=== PATIENT | male | born 1995 | race Hispanic/Latino ===

== ENCOUNTER 2016-07-21 22:18 | Emergency (ER) | payer SELFPAY ==
[~2016-07-21] VITALS: Ht 175.3 cm; Wt 75.0 kg
[2016-07-21 22:29] VITALS: BP 135/83; PULSE 113; RESP 15; O2SAT 100
--- NOTE | 2016-07-21 22:40 | ED.REPORT ---
HPI-Overdose/Alcohol Toxicity Date of Service Jul 21, 2016 ED Provider: Tony Mcdowell MD Patient is a 21 year old male who reports to the ED via EMS for aggressive behavior due to intoxication. Pt was tied up by relatives for transport and ketamine was given en route. He is sleeping upon arrival and requires a psych evaluation and a sitter. Patient awakens intermittently and is beligerant with staff and expresses suicidal intentions. Upon waking, patient does not recall what happened during the night other then that he was drinking in [place]. He knows he is at [facility]. Nursing Notes Stated Complaint: ETOH Chief Complaint: Substance Abuse Nursing Notes Reviewed: Yes Allergies: Coded Allergies: No Known Allergies (Unverified Allergy, Unknown, 01/09/14) No Active Prescriptions or Reported Meds General Time Seen by Provider: 22:38 Chief Complaint Intoxicated, alcohol Initial Psychiatric Assessment: Expresses suicidal intent Hx Obtained From: Patient Arrived By: Ambulance Onset Occurred: 5 - 8 hours ago Symptom Duration: Since onset Severity: Current: No pain currently Recent Healthcare: No recent doctor visit, No recent hospitalization Similar Sx Previous: No Past Medical History Past Medical History denies Past Surgical History denies Smoking History Unknown if Ever Smoker Social History Alcohol Use: 3-5 per day Drug Use: THC Ambulatory Status Independent Review of Systems Unable to Obtain ROS Intoxicated Physical Exam Initial Vital Signs Vital Signs (First) Date Time Temp Pulse Resp B/P Pulse Ox O2 Delivery O2 Flow Rate FiO2 07/21/16 22:29 37.2 113 15 135/83 100 Nasal Cannula 4 Initial VS: Reviewed, Vital signs abnormal Head / Eyes: Atraumatic, Normocephalic, PERRL ENT: Mucous membranes moist, Conjunctiva normal, No scleral icterus Neck: Supple, Non-tender, Full range of motion Extremities: Vascular intact, Neuro intact, No swelling, No tenderness Skin: Warm, Dry, No cyanosis Alertness: Positive: Sedated Appearance / Presentation: Positive: Intoxicated smells of EtOH Respiratory / Chest: Atraumatic, Breath sounds NL, Breath sounds = bilat, No respiratory distress, No rales, No rhonchi, No wheezing Cardiovascular: Heart rate NL, Regular rhythm, Heart sounds NL, No gallop, No murmurs, No rubs Abdomen: Atraumatic, Soft, Non-tender, No guarding, No rebound, BS normoactive Mental Status: Positive: Unresponsive sedated Unable to Evaluate: Positive: Unresponsive Interpretation & Diagnostics Lab Results Interpretation Result Diagram: 07/21/16 22507/21/16 225 Test 07/21/16 22:51 07/22/16 02:40 White Blood Count 10.2th/mm3 (3.8-10.1) Red Blood Count 5.40mil/mm3 (4.40-5.80) Hemoglobin 16.7g/dL (13.8-17.2) Hematocrit 48.8% (41.0-50.0) Mean Corpuscular Volume 90.4fL (81-100) Mean Corpuscular Hemoglobin 30.9pg (27.0-35.0) Mean Corpuscular Hemoglobin Concent 34.2% (32.0-37.0) Red Cell Distribution Width 12.9% (12.3-15.4) Platelet Count 377bil/L (150-400) Neutrophils (%) (Auto) 53.7% (40-74) Lymphocytes (%) (Auto) 35.3% (14-46) Monocytes (%) (Auto) 9.3% (4-12) Eosinophils (%) (Auto) 0.7% (0-5) Basophils (%) (Auto) 0.3% (0-3) Hold Purple Top Tube Received (Received) Hold Blue Top Tube Received (Received) Sodium Level 146mEq/L (134-144) Potassium Level 3.4mEq/L (3.5-5.2) Chloride Level 101mEq/L (97-108) Carbon Dioxide Level 15mmol/L (18-29) Blood Urea Nitrogen 10mg/dL (6-20) Creatinine 1.36mg/dL (0.76-1.27) Estimat Glomerular Filtration Rate 70mL/min (>59) Glucose Level 163mg/dL (60-99) Calcium Level 9.5mg/dL (8.5-10.1) Total Bilirubin 0.3mg/dL (0.0-1.2) Aspartate Amino Transf (AST/SGOT) 37U/L (0-50) Alanine Aminotransferase (ALT/SGPT) 28U/L (0-44) Alkaline Phosphatase 79U/L (25-150) Total Creatine Kinase 211U/L (21-232) Total Protein 8.7g/dL (6.4-8.4) Albumin 5.5g/dL (3.4-5.0) Lipase 34U/L (13-60) Hold Red Top Tube Received (Received) Hold [place] Top Tube Received (Received) Alcohol, Quantitative 268mg/dL (0-10) Hold Urine Received (Received) Lab values outside NL range: no clinical significance. Re-Eval/Medical Decision Med Decision/Clinical Course 21-year-old who was very intoxicated and required restraint and ketamine sedation en route. He sobered through the night, and now does not remember much of the events. He is remorseful. He denies with specific questioning suicidal or homicidal ideation. He will be discharged home. A brief intervention was done. Re-Evaluation/Progress : Time of Eval: 05:27 Patient Status: Condition improved Re-Evaluation/Progress Note: Pt rechecked. Pt was sleeping, but wakes up and responds to questions. He is sobered and continues to improve. He now denies suicidal ideation. Counseled Regarding: Diagnosis, Lab results, Need for follow-up, When/why to return to ED Discharge & Departure Impression: Primary Impression: Alcohol abuse )( Condition at Discharge: No danger to self, No danger to others, No suicidal ideation, No homicidal ideation Disposition: Home Discharge Condition All VS Reviewed: Yes Condition: Stable Patient Instructions: Alcohol Intoxication (ED) Additional Instructions: Alcohol and marijuana are not your friends. Get back on track, and do not drink. Return to the emergency room as needed. Referrals: NOPCP (PCP) Scribe Attestation Portions of this note were transcribed by Justyn Brisoce. I, Dr. Mcdowell personally performed the history, physical exam and medical decision-making; I reviewed and confirmed the accuracy of the information in the transcribed note. Signed by: Sabine Ott, 07/22/16 0601 Tony Mcdowell MD Jul 21, 2016 22:40 JUSTYN BRISCOE Jul 22, 2016 05:07
[2016-07-21 23:35] LABS: BASOPHILS % (AUTO) 0.3 % (0-3); EOSINOPHILS % (AUTO) 0.7 % (0-5); MONOCYTES % (AUTO) 9.3 % (4-12); Mean Corpuscular Hemoglobin 30.9 pg (27.0-35.0); Mean Corpuscular Volume 90.4 fL (81-100); NEUTROPHILS % (AUTO) 53.7 % (40-74); Platelet Count 377 bil/L (150-400)
[2016-07-21] MEDS ORDERED: 0.9% Sodium Chloride 1,000 ML IV ONE (23:35)
[2016-07-22 00:11] VITALS: BP 115/60; PULSE 104; RESP 14; O2SAT 100
[2016-07-22 02:15] VITALS: BP 130/50; PULSE 112; RESP 17; O2SAT 99
[2016-07-22 06:16] VITALS: BP 130/50; PULSE 91; RESP 13; O2SAT 97
[2016-07-22 06:46] VITALS: BP 130/50; PULSE 91; RESP 13; O2SAT 97
== END 2016-07-22 06:44 | disposition home or self-care (01) ==
LOC: SED 22:18 → EDBD 22:18 → EDUNIT# 22:18 → SED 07-22 06:44
DX: F10.129 Alcohol abuse with intoxication, unspecified (principal); F91.8 Other conduct disorders; R45.851 Suicidal ideations
CPT/HCPCS: 36415; 80053; 81002; 82075; 82550; 83690; 85025; 96360; 99284; G0480; J7030

== ENCOUNTER 2016-10-01 13:44 | Emergency (ER) | payer SELFPAY ==
[~2016-10-01] VITALS: Ht 167.6 cm; Wt 65.9 kg
[2016-10-01 13:59] VITALS: BP 134/75; PULSE 98; RESP 27; O2SAT 100
[2016-10-01 14:25] LABS: BASOPHILS % (AUTO) 0.7 % (0-3); EOSINOPHILS % (AUTO) 4.3 % (0-5); MONOCYTES % (AUTO) 11.1 % (4-12); Mean Corpuscular Volume 89.8 fL (81-100); Platelet Count 290 bil/L (150-400)
[2016-10-01 14:35] VITALS: BP 134/75; PULSE 98; RESP 24; O2SAT 98
[2016-10-01 14:47] LABS: Magnesium 1.7 mg/dL (1.6-2.6)
--- NOTE | 2016-10-01 15:46 | ED.REPORT ---
HPI-Dyspnea / Wheezing Date of Service Oct 01, 2016 ED Provider: Farshad Fierro MD This is a 21 year old male with a history of anxiety presenting to the emergency department due to shortness of breath that began just prior to arrival. Friend accompanying patient reports that pt has been having panic attacks since 9 PM yesterday night. Patient does not respond to interview in the ED but follows commands during examination. Nursing Notes Stated Complaint: POSSIBLE ASTHMA ATTACK/ANXIETY Chief Complaint: General Complaint Nursing Notes Reviewed: Yes Allergies: Coded Allergies: No Known Allergies (Unverified Allergy, Unknown, 10/01/16) No Active Prescriptions or Reported Meds General Time Seen by MD: 15:44 Chief Complaint Shortness of breath Hx Obtained From: Patient Arrived By: Walk-in Sudden in Onset?: Yes Onset Occurred: Just prior to arrival Symptom Duration: Since onset Severity: Current: No pain currently Pertinent Negative: Pt denies other symptoms Recent Healthcare: No recent doctor visit, No recent hospitalization Similar Sx Previous: No Past Medical History Past Medical History Anxiety Past Surgical History denies Smoking History Unknown if Ever Smoker Social History Alcohol Use: 3-5 per day Drug Use: THC Ambulatory Status Independent Review of Systems Unable to Obtain ROS Patient condition Constitutional: Denies: Chills, Fever Respiratory: Reports: Shortness of breath Cardiovascular: Denies: Chest pain Physical Exam Initial Vital Signs Vital Signs (First) Date Time Temp Pulse Resp B/P Pulse Ox O2 Delivery O2 Flow Rate FiO2 10/01/16 13:59 36.6 98 27 134/75 100 Room Air 10/01/16 16:48 2 Initial VS: Reviewed Head / Eyes: Atraumatic, Normocephalic, PERRL ENT: Mucous membranes moist, Conjunctiva normal, No scleral icterus Abdomen / GI: Soft, Non-tender, No guarding, No rebound, No distention Extremities: Vascular intact, Neuro intact, No swelling, No tenderness Skin: Warm, Dry, No cyanosis Psychiatric: Mood/affect normal, Behavior normal, Normal thought content General/Constitutional: Awake Neck: Atraumatic, Supple, No meningismus, Full range of motion, No swelling, Non-tender, No masses Respiratory / Chest: Breath sounds NL, Breath sounds = bilat, No respiratory distress, No rales, No rhonchi, No wheezing Cardiovascular: Heart rate NL, Regular rhythm, Heart sounds NL, Peripheral circulation NL Neurologic: No motor deficits, No sensory deficits, CN II - XII intact Responds to commands Interpretation & Diagnostics HEAD CT IMPRESSION: No acute intracranial abnormalities. Dictated by: Montrell Beckman M.D. on 10/01/2016 at 16:17 Approved by: Montrell Beckman M.D. on 10/01/2016 at 16:20 Lab Results Interpretation Result Diagram: 10/01/16 1420 10/01/16 1420 Test 10/01/16 14:20 White Blood Count 10.6th/mm3 (3.8-10.1) Red Blood Count 4.81mil/mm3 (4.40-5.80) Hemoglobin 14.9g/dL (13.8-17.2) Hematocrit 43.2% (41.0-50.0) Mean Corpuscular Volume 89.8fL (81-100) Mean Corpuscular Hemoglobin 31.0pg (27.0-35.0) Mean Corpuscular Hemoglobin Concent 34.5% (32.0-37.0) Red Cell Distribution Width 13.3% (12.3-15.4) Platelet Count 290bil/L (150-400) Neutrophils (%) (Auto) 54.0% (40-74) Lymphocytes (%) (Auto) 29.6% (14-46) Monocytes (%) (Auto) 11.1% (4-12) Eosinophils (%) (Auto) 4.3% (0-5) Basophils (%) (Auto) 0.7% (0-3) Sodium Level 137mEq/L (134-144) Potassium Level 3.1mEq/L (3.5-5.2) Chloride Level 97mEq/L (97-108) Carbon Dioxide Level 16mmol/L (18-29) Blood Urea Nitrogen 10mg/dL (6-20) Creatinine 0.73mg/dL (0.76-1.27) Estimat Glomerular Filtration Rate 143mL/min (>59) Glucose Level 101mg/dL (60-99) Calcium Level 10.2mg/dL (8.5-10.1) Magnesium Level 1.7mg/dL (1.6-2.6) Total Bilirubin 1.0mg/dL (0.0-1.2) Aspartate Amino Transf (AST/SGOT) 25U/L (0-50) Alanine Aminotransferase (ALT/SGPT) 17U/L (0-44) Alkaline Phosphatase 61U/L (25-150) Total Protein 7.6g/dL (6.4-8.4) Albumin 4.7g/dL (3.4-5.0) Hold [place] Top Tube Received (Received) Salicylates Level < 3.0ug/mL (30-250) Acetaminophen Level < 15.0ug/mL Rx (10-25) Alcohols 11mg/dL (0-10) ECG Interpretation ECG Interpretation: NSR at a rate of 71 Time: 16:19 Interpreted by: ED physician Normal ECG Interpretation: Normal rate, Normal sinus rhythm, No acute ischemic changes, Normal QRS, Normal axis, Normal intervals, No change from prior ECGs, Adequate tracing Re-Eval/Medical Decision Med Decision/Clinical Course 21-year-old male brought in by friends for shortness breath. On arrival patient was altered and appeared intoxicated. His O2 was normal and he had no signs dyspnea. His blood alcohol level was 11. His urine was positive for cocaine and marijuana. Patient not answer my questions for quite some time then was monitored and was back at baseline. He was ambulating and conversing without any difficulty. His potassium was slightly low was given an oral dose. Patient stable for discharge home with plans to stop substance abuse return precautions given. Counseled Regarding: Diagnosis, Lab results, Need for follow-up Discharge & Departure Impression: Primary Impression: Alcohol intoxication Complication of substance-induced condition: with unspecified complication Qualified Code: F10.129 - Alcohol abuse with intoxication, unspecified Additional Impression: Cocaine intoxication Complication of substance-induced condition: with unspecified complication Qualified Code: F14.929 - Cocaine use, unspecified with intoxication, unspecified Disposition: Home Discharge Condition All VS Reviewed: Yes Condition: Stable Patient Instructions: Alcohol Intoxication (ED), Cocaine Abuse (ED) Additional Instructions: Stop using illicit drugs. Follow-up with your primary care provider. Return to the emergency department if you develop any new or worsening symptoms. Referrals: NOPCP (PCP) Scribe Attestation Portions of this note were transcribed by William Wang. I, Dr. Fierro personally performed the history, physical exam and medical decision-making; I reviewed and confirmed the accuracy of the information in the transcribed note. Signed by Sabine De La Cruz, 10/01/2016 at 17:00. Farshad Fierro MD Oct 01, 2016 15:46 WILLIAM WANG Oct 01, 2016 15:47
--- NOTE | 2016-10-01 16:21 | DRSVH ---
PROCEDURE: CT BRAIN WITHOUT CONTRAST ([id number]) INDICATIONS: 21 year-old male with altered mental status. TECHNIQUE: Noncontrast 4.5 mm thick angled axial sections acquired from the foramen magnum to the vertex, with c oronal reformats. COMPARISON: [facility], CT, BRAIN W/O CONTRAST, 01/09/2014, 15:13. FINDINGS: Image quality: Excellent. CSF spaces: Basal cisterns are patent. No extra-axial fluid collections. Ventricles are normal in size and shape. Brain: No midline shift. No intracranial masses or hemorrhage. Bashir-white matter interface is norm al. Skull and face: Calvarium and visualized facial bones are intact, without suspicious lesions. Left s upra-orbital skin piercing is now present. Sinuses: There is mild bilateral ethmoid sinus mucosal thickening. Other visualized sinuses and masto ids are clear. IMPRESSION: No acute intracranial abnormalities. Dictated by: Montrell Beckman M.D. on 10/01/2016 at 16:17 Approved by: Montrell Beckman M.D. on 10/01/2016 at 16:20
[2016-10-01 16:25] VITALS: BP 122/76; PULSE 79; RESP 18; O2SAT 98
[2016-10-01 16:48] VITALS: BP 126/72; PULSE 81; RESP 16; O2SAT 100
[2016-10-01] MEDS ORDERED: Potassium Chloride 20 mEq SR Tablet PO ONE (17:40)
[2016-10-01 18:52] VITALS: BP 126/72; PULSE 81; RESP 16; O2SAT 100
== END 2016-10-01 18:53 | disposition home or self-care (01) ==
LOC: SED 13:44
DX: F10.129 Alcohol abuse with intoxication, unspecified (principal); F14.929 Cocaine use, unspecified with intoxication, unspecified
CPT/HCPCS: 36415; 70450; 80053; 81002; 83735; 85025; 93005; 99284; G0480